=== PATIENT | male | born 1950 | race Caucasian/White ===

== ENCOUNTER 2020-03-19 10:19 | Outpatient (CLI) | payer MEDICARE, BC ==
--- NOTE | 2020-03-19 12:10 | MRI ---
MRI Cervical spine without contrast: HISTORY: Neck pain with bilateral arm and shoulder pain. Degenerative disc disease. Cervical radiculopathy. COMPARISON: None FINDINGS: The craniocervical junction is unremarkable. No significant cord signal abnormality. Paravertebral soft tissues have a normal appearance and normal signal intensity. There is a rounded area of increased T1 and T2-weighted signal intensity seen in the T3 vertebral bod y measuring 1.6 cm demonstrating characteristics compatible with a hemangioma. There is also a increased T1 and T2-weighted signal intensity lesion seen in the C6 vertebral body which also involve s the right pedicle and a portion of the lamina and right lateral mass of C6 which also demonstrates characteristics compatible with a hemangioma. C2-3: Minimal central disc protrusion. Central spinal canal and neural foramina are patent. C3-4: Left paracentral disc osteophyte complex/uncinate process of the hypertrophy which narrows the ventral subarachnoid space greater on the left with resultant severe left-sided neural foraminal narrowing. Facet hypertrophic changes are seen. Right neural foramen is patent. C4-5: Mild loss of intervertebral disc height. Broad-based disc osteophyte complex is present with sl ightly greater left paracentral disc osteophyte complex. This results in generalized narrowing of the central spinal canal with mild flattening of the anterior aspect of the spinal cord. Facet hypert rophic changes are seen. Moderate to severe bilateral neural foraminal narrowing is present. C5-6: Broad-based disc osteophyte complex which results in generalized narrowing central spinal canal and flattening of the anterior aspect of the spinal cord. Severe left and moderate to severe right-sided neural foraminal narrowing is present. C6-7: Loss of intervertebral disc height. Mild endplate degenerative changes are present at this leve l. A broad-based disc osteophyte complex is present which narrows the ventral subarachnoid space with generalized mild narrowing of the central spinal canal. Facet degenerative changes are seen prim arily on the left. Right neural foramen is patent, but there is moderate left-sided neural foraminal narrowing. C7-T1: Central spinal canal and neural foramina are patent. IMPRESSION: Multilevel degenerative changes throughout the cervical spine with multilevel moderate and severe deg jazmine of neural foraminal narrowing.
== END 2020-03-19 10:20 | disposition home or self-care (01) ==
LOC: TBSIIMAG 10:19
PROVIDERS: ATTEND Surgery
DX: M50.10 Cervical disc disorder with radiculopathy, unspecified cervical region (principal); M47.22 Other spondylosis with radiculopathy, cervical region; M48.02 Spinal stenosis, cervical region
CPT/HCPCS: 72141

== ENCOUNTER 2021-12-28 07:54 | Outpatient (CLI) | payer MEDICARE, BC | END 2021-12-28 07:55 | disposition home or self-care (01) | LOC: TBSIIMAG 07:54 | PROVIDERS: ATTEND Surgery | DX: M54.2 Cervicalgia (principal); Z98.1 Arthrodesis status; Z98.890 Other specified postprocedural states | CPT/HCPCS: 72040 ==